=== PATIENT | male | born 1970 | race Caucasian/White ===

== ENCOUNTER 2021-12-14 07:12 | Day surgery (SDC) | payer OTHER ==
[~2021-12-14] VITALS: Ht 185.4 cm; Wt 111.4 kg
[~2021-12-14 07:12] MED LIST: ASPIRIN EC325 MG PO; GABAPENTIN300 MG PO; GLUCOSAMINE-CH1 EA35 PO; TRILEPTAL600 MG PO
--- NOTE | 2021-12-14 09:04 | NUR ---
12/14/21 0904 Alexa Da Silva 0849 PT TO PACU ALERT AND AWAKE DENIES PAIN OR NAUSEA.
--- NOTE | 2021-12-15 06:31 | OR ---
[facility] [address], [place] [address] Signed DATE OF OPERATION: 12/14/2021 SURGEON: Susy Ann MD PREOPERATIVE DIAGNOSIS: Screening. POSTOPERATIVE DIAGNOSIS: Minimal sigmoid diverticulosis. PROCEDURE: Colonoscopy without biopsy. ESTIMATED BLOOD LOSS: None. INDICATIONS: Alan is a 51-year-old gentleman, asked to see me for his initial screening colonoscopy. He has no lower GI complaints. There is no family history of colon cancer or polyps. He did remind me that I helped his a couple years ago with her colonoscopy. They happened to live in [place], [place]. He has had a subdural hematoma in the past requiring craniotomy. He has a little function of his left arm and has to wear a brace for his left footdrop. He is still able to drive. 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 He frequently has seizures at night. He said he can even get psychotic. He is on quite a few different medications. He has a long list of drug allergies as well. Consequently, he is a candidate for monitored anesthesia care. In the office, I gave Alan a pamphlet on colonoscopy. We had reviewed the nature of the test. There is risk including, but not limited to gas bloating, crampy abdominal pain, bleeding, perforation requiring surgery, and missed diagnosis. He had expressed understanding and wished to proceed. PROCEDURE NOTE: Alan was taken into our endoscopy suite and placed in the left lateral decubitus position. He was given monitored anesthesia care with propofol per our nurse airport clerk. A digital rectal exam was performed. He seems to have less sphincter tone than most patients. I was not able to reach his prostate gland. He is fairly tall. He does have a little erythema over the gluteal crease and his proximal left posterior thigh from . After this, the adult colonoscope had been introduced and advanced under direct visualization of the camera. It took a little extra abdominal compression in order to advance the scope directly into the cecum itself. Overall, his Electronically Signed By: SUSY ANN MD 12/15/21 0631 PATIENT NAME: ALAN ESCAMILLA OPERATIVE REPORT DATE OF : 66 REPORT #: [id number] PHYSICIAN: SUSY ANN MD PCP: DAYO ADAMES MD REPORT IS CONFIDENTIAL AND NOT TO BE RELEASED WITHOUT AUTHORIZATION [facility] [address], [place] [address] Signed prep was good. He had a few areas of liquid particulate stool that I could not quite suction out completely. We had slowly withdrawn the scope. We took pictures throughout for photodocumentation. We saw just a few tiny diverticula in the sigmoid colon. The rectum was unremarkable. Upon retroflexion of the scope, he had quite a bit of liquid stool and particulate stool matter that I could not quite see on the top of the anus. After this, the gas was suctioned out and the colonoscope removed. Fabricio tolerated the procedure quite well. RECOMMENDATIONS: Fabricio can follow up in 10 years for repeat colonoscopy. He might consider some additional bowel prep in the future. Susy Ann MD ALB/MODL /[id number] cc: MD Susy Green MD Copies: DAYO ADAMES MD, ANDREW L MD ~ Electronically Signed By: SUSY ANN MD 12/15/21 0631 PATIENT NAME: ALAN ESCAMILLA OPERATIVE REPORT DATE OF : 66 REPORT #: [id number] PHYSICIAN: SUSY ANN MD PCP: DAYO ADAMES MD REPORT IS CONFIDENTIAL AND NOT TO BE RELEASED WITHOUT AUTHORIZATION
== END 2021-12-14 09:25 | disposition home or self-care (01) ==
LOC: DS 07:12
PROVIDERS: ATTEND Colon & Rectal Surgery
PROC: 0DJD8ZZ Inspection of Lower Intestinal Tract, Via Natural or Artificial Opening Endoscopic (ICD-10-PCS; principal; 2021-12-14 08:15)
DX: Z12.11 Encounter for screening for malignant neoplasm of colon (principal); E66.9 Obesity, unspecified; G40.909 Epilepsy, unspecified, not intractable, without status epilepticus; Z68.32 Body mass index [BMI] 32.0-32.9, adult; Z88.8 Allergy status to other drugs, medicaments and biological substances; Z91.040 Latex allergy status
CPT/HCPCS: J2704; J3010; J7121